=== PATIENT | female | born 1965 | race Caucasian/White ===

== ENCOUNTER 2016-07-05 09:09 | Emergency (ER) | payer OTHER ==
[2016-07-05] MEDS ORDERED: SODIUM CHLORIDE 0.9% 1,000 ML IV STA (09:30)
--- NOTE | 2016-07-05 09:51 | ED ---
General Adult HPI - General Chief complaint: Dizziness Stated complaint: dizziness, fall Time Seen by Provider: 07/05/16 09:18 Source: patient, RN notes reviewed Mode of arrival: ambulatory Limitations: no limitations - History of Present Illness Initial comments: 50-year-old female presents to the emergency department for an evaluation. Patient states this morning she rolled over to off her alarm and she felt as if the world was spinning. Patient states she laid in bed this dizziness resolved. Patient states she got up and walked to the bathroom and she has not had spinning since the morning. Patient states when she went to sit down to go to the bathroom she felt as if she just fell without control patient states that she fell onto her left knee. Patient states she did not hit her head. Patient states her leg did not give out she did not feel dizzy at this time she just fell and she does not know how. Patient states that over the last year her left leg has been getting weaker. Patient does admit to a history of back surgery in the past but states she hasn't had any increased pain that leg she states she just noticed some weakness. Patient states she's also been told that she has a herniated disc in the neck about a year ago and has not had a procedure on either. Patient's positive dizziness may be related to this. Patient states that she has no headache she has not experienced this dizziness that she feels as if she is back to normal. Patient states that she was concerned due to the fact she is having symptoms so she thought that she should be evaluated patient denies any other significant health history. Patient denies any recent fever, chills, shortness of breath, chest pain, back pain, abdominal pain, nausea vomiting, numbness or tingling, dysuria or hematuria, constipation or diarrhea, headaches or visual changes, or any other current symptoms. - Related Data Home Medications Medication Instructions Recorded Confirmed Butalb/APAP/Caff 50-325-40Mg 1 tab PO Q4H PRN 07/05/16 07/05/16 [Fioricet 50-325-40] Cyclobenzaprine [Flexeril] 10 mg PO TID PRN 07/05/16 07/05/16 Ibuprofen [Motrin] 800 mg PO Q8H PRN 07/05/16 07/05/16 Previous Rx's Medication Instructions Recorded Meclizine [Antivert] 12.5 mg PO Q6H #20 tablet 07/05/16 Allergies Allergy/AdvReac Type Severity Reaction Status Date / Time codeine Allergy Anaphylaxis Verified 07/05/16 09:25 Review of Systems ROS Statement: Those systems with pertinent positive or pertinent negative responses have been documented in the HPI. ROS Other: All systems not noted in ROS Statement are negative. Past Medical History Additional Past Medical History / Comment(s): herniated disc, djd, headaches History of Any Multi-Drug Resistant Organisms: None Reported Past Surgical History: Appendectomy, Back Surgery, Section Additional Past Surgical History / Comment(s): uterine ablation Past Psychological History: No Psychological Hx Reported Smoking Status: Never smoker Past Alcohol Use History: None Reported Past Drug Use History: None Reported General Exam - General Exam Comments Initial Comments: General: The patient is awake and alert, in no distress, and does not appear acutely ill. Eye: Pupils are equal, round and reactive to light, extra-ocular movements are intact; there is normal conjunctiva bilaterally. No signs of icterus. Ears, nose, mouth and throat: There are moist mucous membranes and no oral lesions. Neck: The neck is supple, there is no tenderness. Cardiovascular: There is a regular rate and rhythm. No murmur, rub or gallop is appreciated. Respiratory: Lungs are clear to auscultation, respirations are non-labored, breath sounds are equal. No wheezes, stridor, rales, or rhonchi. Gastrointestinal: Soft, non-distended, non-tender abdomen without masses or organomegaly noted. There is no rebound or guarding present. No CVA tenderness. Bowel sounds are unremarkable. Back: There is no tenderness to palpation in the midline. There is no obvious deformity. No rashes noted. Musculoskeletal: Patient to left knee Normal ROM, no tenderness, There is no pedal edema. There is no calf tenderness or swelling. Sensation intact. Pulses equal bilaterally 2+. Neurological: CN II-XII intact, There are no obvious motor or sensory deficits. Coordination appears grossly intact. Speech is normal. 5 out of 5 muscle strength testing is no pronator drift, no ataxia Skin: Skin is warm and dry and no rashes or lesions are noted. Psychiatric: Cooperative, appropriate mood & affect, normal judgment. Limitations: no limitations Course Vital Signs 07/05/16 09:12 Temperature 99.4 F Pulse Rate 102 H Respiratory 20 Rate Blood Pressure 128/84 O2 Sat by Pulse 97 Oximetry EKG Findings - EKG Comments: EKG Findings:: normal sinus rhythm 83 bpm, normal axis, no atopy, no S-T depressions or elevations, Medical Decision Making - Medical Decision Making 50-year-old female presents with what appears to be vertigo and associated fall. At this time CAT scan and laboratory is reviewed and does not show any acute process. Patient does have the symptoms of vertigo and then symptoms of off balance. Patient has no ataxia on exam patient is able to ambulate around the emergency department. We discussed continued follow-up with her PCP. We will start patient Antivert. We discussed return parameters. Patient stated that she understood she hasn't been complaining all questions have been answered. She will be discharged. - Lab Data Result diagrams: 07/05/16 09:35 07/05/16 09:35 Lab Results 07/05/16 07/05/16 07/05/16 Range/Units 09:35 09:35 09:35 WBC 5.4 (3.8-10.6) k/uL RBC 4.54 (3.80-5.40) m/uL Hgb 14.1 (11.4-16.0) gm/dL Hct 42.5 (34.0-46.0) % MCV 93.7 (80.0-100.0) fL MCH 31.0 (25.0-35.0) pg MCHC 33.1 (31.0-37.0) g/dL RDW 12.6 (11.5-15.5) % Plt Count 215 (150-450) k/uL Neutrophils % 61 % Lymphocytes % 29 % Monocytes % 5 % Eosinophils % 2 % Basophils % 1 % Neutrophils # 3.2 (1.3-7.7) k/uL Lymphocytes # 1.6 (1.0-4.8) k/uL Monocytes # 0.3 (0-1.0) k/uL Eosinophils # 0.1 (0-0.7) k/uL Basophils # 0.0 (0-0.2) k/uL Sodium 140 (137-145) mmol/L Potassium 4.4 (3.5-5.1) mmol/L Chloride 105 (98-107) mmol/L Carbon Dioxide 23 (22-30) mmol/L Anion Gap 12 mmol/L BUN 12 (7-17) mg/dL Creatinine 0.79 (0.52-1.04) mg/dL Est GFR (MDRD) Af Amer >60 (>60 ml/min/1.73 sqM) Est GFR (MDRD) Non-Af >60 (>60 ml/min/1.73 sqM) Glucose 100 H (74-99) mg/dL Calcium 9.1 (8.4-10.2) mg/dL Total Bilirubin 0.6 (0.2-1.3) mg/dL AST 17 (14-36) U/L ALT 25 (9-52) U/L Alkaline Phosphatase 82 (38-126) U/L Total Protein 7.6 (6.3-8.2) g/dL Albumin 4.1 (3.5-5.0) g/dL Urine Color Urine Appearance (Clear) Urine pH (5.0-8.0) Ur Specific [place] (1.001-1.035) Urine Protein (Negative) Urine Glucose (UA) (Negative) Urine Ketones (Negative) Urine Blood (Negative) Urine Nitrate (Negative) Urine Bilirubin (Negative) Urine Urobilinogen (<2.0) mg/dL Ur Leukocyte Esterase (Negative) Influenza Type A RNA Not Detected (Not Detectd) Influenza Type B (PCR) Not Detected (Not Detectd) 07/05/16 Range/Units 09:35 WBC (3.8-10.6) k/uL RBC (3.80-5.40) m/uL Hgb (11.4-16.0) gm/dL Hct (34.0-46.0) % MCV (80.0-100.0) fL MCH (25.0-35.0) pg MCHC (31.0-37.0) g/dL RDW (11.5-15.5) % Plt Count (150-450) k/uL Neutrophils % % Lymphocytes % % Monocytes % % Eosinophils % % Basophils % % Neutrophils # (1.3-7.7) k/uL Lymphocytes # (1.0-4.8) k/uL Monocytes # (0-1.0) k/uL Eosinophils # (0-0.7) k/uL Basophils # (0-0.2) k/uL Sodium (137-145) mmol/L Potassium (3.5-5.1) mmol/L Chloride (98-107) mmol/L Carbon Dioxide (22-30) mmol/L Anion Gap mmol/L BUN (7-17) mg/dL Creatinine (0.52-1.04) mg/dL Est GFR (MDRD) Af Amer (>60 ml/min/1.73 sqM) Est GFR (MDRD) Non-Af (>60 ml/min/1.73 sqM) Glucose (74-99) mg/dL Calcium (8.4-10.2) mg/dL Total Bilirubin (0.2-1.3) mg/dL AST (14-36) U/L ALT (9-52) U/L Alkaline Phosphatase (38-126) U/L Total Protein (6.3-8.2) g/dL Albumin (3.5-5.0) g/dL Urine Color Yellow Urine Appearance Clear (Clear) Urine pH 6.0 (5.0-8.0) Ur Specific [place] 1.010 (1.001-1.035) Urine Protein Negative (Negative) Urine Glucose (UA) Negative (Negative) Urine Ketones Negative (Negative) Urine Blood Negative (Negative) Urine Nitrate Negative (Negative) Urine Bilirubin Negative (Negative) Urine Urobilinogen <2.0 (<2.0) mg/dL Ur Leukocyte Esterase Negative (Negative) Influenza Type A RNA (Not Detectd) Influenza Type B (PCR) (Not Detectd) - Radiology Data Radiology results: report reviewed, image reviewed Disposition Clinical Impression: Vertigo, Fall, Abrasion, left knee, initial encounter Disposition: HOME SELF-CARE Condition: Stable Instructions: Vertigo (ED) Additional Instructions: Please use medication as discussed. Please follow up with family doctor if symptoms have not improved over the next two days. Please return to the emergency room if your symptoms increase or worsen or for any other concerns. Prescriptions: Meclizine [Antivert] 12.5 mg PO Q6H #20 tablet Referrals: Arlet Hardy DO [Primary Care Provider] - 1-2 days
[2016-07-05 09:56] LABS: Basophils % (A) 1 %; CH 31.2; CHCM 33.5; Eosinophils # (A) 0.1 k/uL (0-0.7); Eosinophils % (A) 2 %; HCT 42.5 % (34.0-46.0); HDW 2.14; HGB 14.1 gm/dL (11.4-16.0); Luc # (Auto) 0.11; Luc % (Auto) 2; Lymphocytes # (A) 1.6 k/uL (1.0-4.8); Lymphocytes % (A) 29 %; MCHC 33.1 g/dL (31.0-37.0); MCV 93.7 fL (80.0-100.0); Mean Platelet Volume 7.5; Monocytes # (A) 0.3 k/uL (0-1.0); Monocytes % (A) 5 %; Neutrophils # (A) 3.2 k/uL (1.3-7.7); Neutrophils % (A) 61 %; RBC 4.54 m/uL (3.80-5.40); RDW 12.6 % (11.5-15.5); WBC 5.4 k/uL (3.8-10.6); WBC (Perox) 5.66
[2016-07-05 10:00] LABS: Appearance,Urine Clear (Clear); Bilirubin,Urine Negative (Negative); Glucose,Urine (UA) Negative (Negative); Ketones,Urine Negative (Negative); Leukocyte Esterase,Urine Negative (Negative); Nitrite,Urine Negative (Negative); Protein,Urine Negative (Negative); UA Billing (MACRO vs. MICRO) CHEM; Urobilinogen,Urine <2.0 mg/dL (<2.0)
[2016-07-05 10:10] LABS: ALT 25 U/L (9-52); AST 17 U/L (14-36); Alkaline Phosphatase 82 U/L (38-126); Anion Gap 12 mmol/L; Blood Urea Nitrogen 12 mg/dL (7-17); Calcium 9.1 mg/dL (8.4-10.2); Carbon Dioxide 23 mmol/L (22-30); Chloride 105 mmol/L (98-107); Glucose 100 mg/dL (74-99); Non-African American GFR(MDRD) >60 (>60 ml/min/1.73 sqM); Potassium 4.4 mmol/L (3.5-5.1); Sodium 140 mmol/L (137-145); Total Bilirubin 0.6 mg/dL (0.2-1.3); Total Protein 7.6 g/dL (6.3-8.2)
--- NOTE | 2016-07-05 10:26 | CT ---
EXAMINATION TYPE: CT brain c-spine wo con DATE OF EXAM: 07/05/2016 10:14 AM COMPARISON: NONE HISTORY: Dizziness and Fall CT DLP: 1291.50 mGycm Automated exposure control for dose reduction was used. TECHNIQUE: CT scan of the brain and cervical spine are performed without contrast. FINDINGS: Brain: Central structures are midline. There is no evidence of hydrocephalus. No acute focal lesion, mass effect or midline shift is seen. I do not see evidence of intracranial blood. Visualized portions of the paranasal sinuses and mastoids are clear. No depressed skull fracture is s een. Cervical spine: There are emphysematous changes throughout the visualized portions of the lungs. There is some shotty cervical adenopathy. Prevertebral soft tissues are otherwise normal. Vertebral body height is maintained. There is a mild reversal of the normal cervical lordosis. Atlant oaxial relationships are normal. There is a minimal retrolisthesis of C5 on C6. There is degenerative disc disease at this level as well as uncovertebral joint disease. No fractures are seen. No discal protrusion is seen. IMPRESSION: 1. Normal CT scan of the brain. 2. No acute cervical fracture. 3. Degenerative change. 4. Emphysematous change.
[2016-07-05 10:59] VITALS: BP 120/80; PULSE 77; RESP 16; TEMP 97.3
== END 2016-07-05 10:58 | disposition home or self-care (01) ==
LOC: EC 09:09
DX: R42 Dizziness and giddiness (principal); S80.212A Abrasion, left knee, initial encounter; W19.XXXA Unspecified fall, initial encounter; Y92.002 Bathroom of unspecified non-institutional (private) residence as the place of occurrence of the external cause; Z88.5 Allergy status to narcotic agent
CPT/HCPCS: 36415; 70450; 72125; 80053; 81003; 85025; 87502; 93005; 96360; 99284

== ENCOUNTER → 2017-09-24 | Outpatient (CLI) | payer OTHER ==
--- NOTE | 2017-09-24 20:58 | MR ---
EXAMINATION TYPE: MR cervical spine wo con DATE OF EXAM: 09/24/2017 COMPARISON: Prior MR cervical spine 09/02/2015 HISTORY: Neck pain, Arm Pain, Headaches TECHNIQUE: Multiplanar, multisequence images of the cervical spine were acquired. C2-C3: No evidence for degenerative disc disease. No disc bulge/herniation or protrusion. No Canal stenosis. Foramina are patent bilaterally. C3-C4: No evidence for degenerative disc disease. No disc bulge/herniation or protrusion. No Canal stenosis. Foramina are patent bilaterally. C4-C5: No evidence for degenerative disc disease. No disc bulge/herniation or protrusion. No Canal stenosis. Foramina are patent bilaterally. C5-C6: There is loss of disc height. Associated spondylosis is present. Lateral extension of endplate disc complex causes bilateral foraminal encroachment, posterior circumferential disc bulge causes on ly mild anterior mass effect on the thecal sac. C6-C7: No evidence for degenerative disc disease. No disc bulge/herniation or protrusion. No Canal stenosis. Foramina are patent bilaterally. C7-T1: No evidence for degenerative disc disease. No disc bulge/herniation or protrusion. No Canal stenosis. Foramina are patent bilaterally. Cervical segments are intact. There is stable alignment. Cervical spinal cord is of normal signal. Craniovertebral junction relationships are within normal limits. IMPRESSION: Stable mild degenerative disc disease.
== END | disposition home or self-care (01) ==
LOC: RADMRIMAIN 18:24
PROVIDERS: ATTEND Neurological Surgery
DX: M50.30 Other cervical disc degeneration, unspecified cervical region (principal)
CPT/HCPCS: 72141

== ENCOUNTER → 2017-10-31 | Outpatient (CLI) | payer OTHER ==
[2017-10-31 17:54] LABS: Partial Thromboplastin Time 24.2 sec (22.0-30.0); Prothrombin Time 9.9 sec (9.0-12.0)
[2017-10-31 18:02] LABS: Basophils % (A) 0 %; Eosinophils # (A) 0.1 k/uL (0-0.7); Eosinophils % (A) 1 %; HCT 39.1 % (34.0-46.0); HGB 13.1 gm/dL (11.4-16.0); Lymphocytes # (A) 2.3 k/uL (1.0-4.8); Lymphocytes % (A) 38 %; MCH 30.3 pg (25.0-35.0); MCHC 33.6 g/dL (31.0-37.0); MCV 90.4 fL (80.0-100.0); Mean Platelet Volume 6.8; Monocytes # (A) 0.4 k/uL (0-1.0); Monocytes % (A) 6 %; Neutrophils # (A) 3.3 k/uL (1.3-7.7); Neutrophils % (A) 53 %; Platelet Count 243 k/uL (150-450); RBC 4.33 m/uL (3.80-5.40); RDW 13.4 % (11.5-15.5); WBC 6.2 k/uL (3.8-10.6)
[2017-10-31 18:04] LABS: ALT 33 U/L (9-52); AST 17 U/L (14-36); Albumin 4.1 g/dL (3.5-5.0); Alkaline Phosphatase 74 U/L (38-126); Anion Gap 10 mmol/L; Blood Urea Nitrogen 9 mg/dL (7-17); Calcium 8.8 mg/dL (8.4-10.2); Carbon Dioxide 25 mmol/L (22-30); Chloride 103 mmol/L (98-107); Glucose 87 mg/dL (74-99); Potassium 4.3 mmol/L (3.5-5.1); Sodium 138 mmol/L (137-145); Total Bilirubin 0.2 mg/dL (0.2-1.3)
[2017-10-31 18:40] LABS: Appearance,Urine Clear (Clear); Bilirubin,Urine Negative (Negative); Blood,Urine Negative (Negative); Color,Urine Yellow; Glucose,Urine (UA) Negative (Negative); Ketones,Urine Negative (Negative); Leukocyte Esterase,Urine Negative (Negative); Nitrite,Urine Negative (Negative); Protein,Urine Trace (Negative); Specific Gravity,Urine 1.025 (1.001-1.035)
[2017-11-01 00:56] LABS: Progesterone 0.4 ng/mL
== END | disposition home or self-care (01) ==
LOC: LABWHC1 16:55
PROVIDERS: ATTEND Neurological Surgery
DX: L90.0 Lichen sclerosus et atrophicus (principal); M50.122 Cervical disc disorder at C5-C6 level with radiculopathy
CPT/HCPCS: 36415; 80053; 81003; 82670; 83001; 83002; 84144; 85025; 85610; 85730; 87070; 87086

== ENCOUNTER → 2017-11-15 | Outpatient (CLI) | payer OTHER ==
--- NOTE | 2017-11-15 17:03 | XR ---
EXAMINATION TYPE: XR chest 2V DATE OF EXAM: 11/15/2017 COMPARISON: 11/29/2011 HISTORY: Preop TECHNIQUE: Frontal and lateral views of the chest are obtained. FINDINGS: Heart and mediastinum are normal. Lungs are clear. Diaphragm is normal. Bony thorax appear s normal. IMPRESSION: Normal chest. No change.
== END | disposition home or self-care (01) ==
LOC: RADXRYALE 16:19
PROVIDERS: ATTEND Nurse Practitioner Family
DX: Z01.818 Encounter for other preprocedural examination (principal)
CPT/HCPCS: 71046

== ENCOUNTER → 2018-01-11 | Outpatient (CLI) | payer OTHER ==
--- NOTE | 2018-01-11 11:53 | XR ---
EXAMINATION TYPE: XR cervical spine comp DATE OF EXAM: 01/11/2018 COMPARISON: 02/12/2012 HISTORY: Pain TECHNIQUE: Frontal and lateral neutral, lateral flexion, and lateral extension views are submitted. FINDINGS: The odontoid is intact. There are no compression deformities. The prevertebral soft tissue structur es are within normal limits. Postsurgical changes C5-C6. Mild degenerative disc disease C4-C5 and C6 -C7. On flexion views there is a 2 to 3 mm anterior listhesis of C5 and C6. IMPRESSION: 1. Postoperative change. See above.
== END | disposition home or self-care (01) ==
LOC: RADXRYALE 10:32
PROVIDERS: ATTEND Neurological Surgery
DX: M50.122 Cervical disc disorder at C5-C6 level with radiculopathy (principal); Z98.890 Other specified postprocedural states
CPT/HCPCS: 72050

== ENCOUNTER → 2018-08-07 | Outpatient (CLI) | payer OTHER ==
[~2018-08-07] MED LIST: REGADENOSON 0.4 MG/5 ML SYRINGE IV ONE
--- NOTE | 2018-08-07 12:02 | NM ---
EXAMINATION TYPE: NM stress lexiscan cardiolite DATE OF EXAM: 08/07/2018 COMPARISON: NONE HISTORY: TECHNIQUE: After the intravenous administration of 10.2 mCi Tc 99m Sestamibi - Cardiolite resting SP ECT images acquired 45 minutes post injection. The patient received 0.4mg Lexiscan, 26.2 mCi Tc 99m Sestamibi - Stress images obtained [address] injection FINDINGS: Review of stress and rest SPECT images demonstrates no distinct perfusion abnormality. Gated analysi s shows normal wall motion with an estimated left ventricular ejection fraction of 65 %. IMPRESSION: No scintigraphic evidence for reversible ischemia.
--- NOTE | 2018-08-07 14:30 | EST ---
EXERCISE STRESS AGE: 52 SEX: F HT: 5'6' WT: 189 PROTOCOL: Lexiscan Cardiolite Stress Test HEART RATE REST: 77 BLOOD PRESSURE REST: 142/87 MAXIMUM HEART RATE ACHIEVED: 108 MAXIMUM BLOOD PRESSURE: 137/85 INDICATIONS: Chest pain. CLINICAL INFORMATION: A Lexiscan nuclear study was performed. Peak heart rate of 108 was achieved. Maximum blood pressure of 137/85 mmHg was noted. The resting EKG shows normal sinus rhythm with normal PA interval and QRS duration and normal ST-T waves. No ST-segment depression suggestive of ischemia is noted. FINAL IMPRESSION: 1. There is no evidence of any ST-segment depression to suggest ischemia during Lexiscan injection. 2. The results of the nuclear study will follow. MMRANDYL / IJN: [id number] /
== END ==
LOC: RADNMMAIN 07:40
PROVIDERS: ATTEND Family Medicine
DX: R07.9 Chest pain, unspecified (principal)
CPT/HCPCS: 93017; 78452; A9500; J2785

== ENCOUNTER 2019-06-04 07:05 | Day surgery (SDC) | payer OTHER ==
[2019-06-03 10:59] VITALS: BMI 27.4
[~2019-06-04 07:05] MED LIST changes: +LACTATED RINGERS 1,000 ML IV SCH; +LIDOCAINE 1% (10MG/ML) FOR IV START INTRADERMA PRN; -REGADENOSON 0.4 MG/5 ML SYRINGE IV ONE
[2019-06-04 07:37] VITALS: RESP 16; TEMP 98.2
[2019-06-04] MEDS ORDERED: PROPOFOL 10 MG/ML 20 ML VIAL IV ONE (08:00)
[2019-06-04] MEDS ORDERED: ONDANSETRON 4 MG/2 ML VIAL ONE (08:00)
[2019-06-04] MEDS ORDERED: KETOROLAC 30 MG/ML 1 ML VIAL ONE (08:00)
--- NOTE | 2019-06-04 08:16 | P.PCN ---
Date of Procedure: 06/04/19 Procedure(s) Performed: Brief history: Patient is a pleasant 53-year-old white female, scheduled for an elective upper endoscopy as well as colonoscopy as a part of evaluation of GERD and screening for colon cancer. Procedure performed: Esophagogastroduodenoscopy with biopsy Attempted Colonoscopy Preoperative diagnosis: GERD refractory to medical therapy Screening for colon cancer Anesthesia: MAC Procedure: After informed consent was obtained from the patient was brought into the endoscopy unit and IV sedation was administered by anesthesia under continuous monitoring. Initially upper endoscopy was done. The Olympus GF 160 video endoscope was inserted inserted into the mouth and esophagus intubated without any difficulty and was gradually advanced into the stomach and duodenum and carefully examined. The bulb and second part of the duodenum appeared normal. The scope was then withdrawn into the stomach adequately insufflated with air and upon careful examination the antrum had mild gastritis and biopsies were done from this area. The body, cardia and fundus appeared normal. The scope was then withdrawn into the esophagus. The GE junction was located at 40 cm to the incisors. It appeared regular with no erythema erosions or ulcerations. However there was a short tongue of Vides's appearing mucosa just proximal to the GE junction measuring 2-3 mm in length which was biopsied. Rest of the esophagus appeared normal. Patient tolerated the procedure well. At this time the patient continued to remain sedation. Initial digital rectal exrevealed solid stool. Olympus CF 160 video colonoscope was then inserted into the rectum and there was significant amount of solid stool noted in the rectum and hence the procedure was terminated. Patient tolerated the procedure well. Impression: 1. 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 Colonoscopy aborted because of extremely poor prep. Recommendations: Findings of this examination were discussed with the patient as well as family. She was advised to follow with the biopsy results. she'll be scheduled for colonoscopy later date. In the meantime she will continue with Prilosec 20 mg twice daily and Pepcid at bedtime. She was educated about diet modification and advised to follow antireflux measures
[2019-06-04] MEDS ORDERED: IV FLUID CONTINUATION 650 ML IV ONE (08:17)
[2019-06-04 08:38] VITALS: BP 129/84; PULSE 72
== END 2019-06-04 08:53 | disposition home or self-care (01) ==
LOC: ORWHC2ENDO 07:05
PROVIDERS: ATTEND Internal Medicine Gastroenterology
DX: K29.50 Unspecified chronic gastritis without bleeding (principal); K22.70 Barrett's esophagus without dysplasia; K21.9 Gastro-esophageal reflux disease without esophagitis; Z12.11 Encounter for screening for malignant neoplasm of colon; I10 Essential (primary) hypertension; Z79.899 Other long term (current) drug therapy; Z88.5 Allergy status to narcotic agent; Z88.1 Allergy status to other antibiotic agents; Z98.1 Arthrodesis status; Z98.890 Other specified postprocedural states; Z90.49 Acquired absence of other specified parts of digestive tract
CPT/HCPCS: 88305; 43239; 45330; J2405; J1885; J2704

== ENCOUNTER → 2020-03-19 | Outpatient (CLI) | payer OTHER ==
--- NOTE | 2020-03-19 15:14 | XR ---
Left shoulder HISTORY: Pain 3 views of left shoulder Bone mineralization, joint spaces and alignment are maintained. No fracture or dislocation. Left lung apex as visualized is normal. IMPRESSION: Normal left shoulder.
== END | disposition home or self-care (01) ==
LOC: RADXRYALE 14:31
PROVIDERS: ATTEND Physician Assistant Medical
DX: M75.02 Adhesive capsulitis of left shoulder (principal)

== ENCOUNTER → 2021-10-13 | Outpatient (CLI) | payer OTHER ==
--- NOTE | 2021-10-13 15:00 | XR ---
EXAMINATION TYPE: XR cervical spine comp DATE OF EXAM: 10/13/2021 COMPARISON: 01/11/2018 HISTORY: INCREASING CERVICALGIA TECHNIQUE: four views FINDINGS: Postsurgical change C5-C6 with moderate degenerative disc disease C6-C7. There is a grade 1 anterolisthesis of C3 on 4. Soft tissue calcification left likely vascular. Foraminal encroachment C 5-C6 bilaterally. IMPRESSION: 1. Postsurgical change C5-C6 and near-anatomic alignment. 2. Multilevel mild facet arthropathy with moderate degenerative disc disease C6-C7. 3. Grade 1 anterolisthesis C3 on C appears stable.
== END | disposition home or self-care (01) ==
LOC: RADXRYALE 10:27
PROVIDERS: ATTEND Physician Assistant Medical
DX: M47.812 Spondylosis without myelopathy or radiculopathy, cervical region (principal); M50.323 Other cervical disc degeneration at C6-C7 level; M43.12 Spondylolisthesis, cervical region
CPT/HCPCS: 72050

== ENCOUNTER → 2022-09-25 | Outpatient (CLI) | payer OTHER ==
--- NOTE | 2022-09-25 10:38 | XR ---
EXAM TYPE: LUMBAR SPINE X RAY SERIES COMPARISON: NONE HISTORY: Pain TECHNIQUE: 4 views are submitted. FINDINGS: Alignment is anatomic. The pedicles are intact. The transverse processes are intact. There is post surgical change at L5-S1 with foraminal encroachment. Mild multilevel additional degenerative disc di sease. SI joints symmetric. IMPRESSION: 1. Postsurgical changes L5-S1 with foraminal protrusion suspected. 2. Multilevel mild degenerative disc
--- NOTE | 2022-09-26 08:42 | XR ---
EXAMINATION TYPE: XR KUB DATE OF EXAM: 09/25/2022 COMPARISON: NONE HISTORY: Left flank pain TECHNIQUE: One view abdominal series FINDINGS: The osseous structures are intact. The bowel gas pattern is nonspecific. Postoperative change lower lumbar spine. Calcifications in the pelvis likely is vascular. IMPRESSION: 1. Nonspecific abdomen. Calcification in pelvis likely is vascular.
== END | disposition home or self-care (01) ==
LOC: RADXRYALE 09:44
PROVIDERS: ATTEND Physician Assistant Medical
DX: M51.36 Other intervertebral disc degeneration, lumbar region (principal); M99.73 Connective tissue and disc stenosis of intervertebral foramina of lumbar region; R31.9 Hematuria, unspecified
CPT/HCPCS: 72110; 74018

== ENCOUNTER → 2022-12-26 | Outpatient (CLI) | payer OTHER ==
--- NOTE | 2022-12-26 10:02 | XR ---
EXAMINATION TYPE: XR Hip Bilateral Complete DATE OF EXAM: 12/26/2022 COMPARISON: NONE HISTORY: Pain TECHNIQUE: 2 views bilateral hip submitted FINDINGS: There is no evidence of erosive change or acute fracture. Postsurgical changes involving the lower ve rtebral canal. Mild diffuse osteopenia. Mild hypertrophic changes as. Calcification in the pelvis syeda ears related to a vascular phlebolith. Tiny spurs along the lower margin of the greater trochanter bi laterally. IMPRESSION: 1. Mild arthropathy.
== END | disposition home or self-care (01) ==
LOC: RADXRYALE 09:11
PROVIDERS: ATTEND Family Medicine
DX: M16.0 Bilateral primary osteoarthritis of hip (principal)
CPT/HCPCS: 73521

== ENCOUNTER → 2023-03-16 | Outpatient (CLI) | payer OTHER ==
--- NOTE | 2023-03-16 11:56 | XR ---
EXAM TYPE: LUMBAR SPINE X RAY SERIES COMPARISON: 09/25/2022 HISTORY: Pain TECHNIQUE: 4 views are submitted. FINDINGS: Alignment is anatomic. The pedicles are intact. The transverse processes are intact. There is postsur gical change at L5-S1 with foraminal encroachment. Mild multilevel additional degenerative disc disea se. SI joints symmetric. Multilevel degenerative change of the thoracolumbar spine with diffuse osteo penia. IMPRESSION: 1. Postsurgical changes L5-S1 with foraminal protrusion suspected. 2. Multilevel mild degenerative disc
--- NOTE | 2023-03-16 11:57 | XR ---
EXAMINATION TYPE: XR cervical spine comp DATE OF EXAM: 03/16/2023 COMPARISON: 10/13/2021 HISTORY: Pain TECHNIQUE: Four views are submitted. FINDINGS: The odontoid is intact. There are no compression deformities. The prevertebral soft tissue structur es are within normal limits. Postsurgical changes C5-C6. Grade 1 anterolisthesis C3-4, C4-5. Multile madelyn facet arthropathy. Calcification and soft tissue the neck is likely related to the carotid artery . Degenerative changes C6-C7. Multilevel facet arthropathy. IMPRESSION: 1. Postsurgical change C5-C6.. 2. Moderate degenerative disc disease C6-C7.
== END | disposition home or self-care (01) ==
LOC: RADXRYALE 10:33
PROVIDERS: ATTEND Family Medicine
DX: M50.322 Other cervical disc degeneration at C5-C6 level (principal); M51.36 Other intervertebral disc degeneration, lumbar region; Z98.890 Other specified postprocedural states
CPT/HCPCS: 72050; 72110

== ENCOUNTER → 2023-07-18 | Outpatient (CLI) | payer OTHER ==
--- NOTE | 2023-07-18 12:22 | US ---
EXAMINATION TYPE: US renals and bladder DATE OF EXAM: 07/18/2023 COMPARISON: None CLINICAL INDICATION: Female, 57 years old with history of N18.31 CHRONIC KIDNEY DISEASE, STAGE 3A; Ab normal labs. No pain. Patient states she has history of renal stones. EXAM MEASUREMENTS: Right Kidney: 10.9 x 5.2 x 6.2 cm Left Kidney: 10.0 x 4.1 x 5.2 cm Right Kidney: Medial anechoic lesion at hilum = 1.4 x 1.7 cm Left Kidney: Echogenic focus seen mid medial = 0.5 cm. Possible dilated renal collecting system in r enal sinus Bladder: distended, anechoic Bilateral Jets seen There is no evidence for hydronephrosis at this point in time. No solid masses are identified. Th e urinary bladder is anechoic. Bilateral ureteral jets are seen. IMPRESSION: 1. Nonobstructing left renal calculus. 2. Cyst right kidney.
== END | disposition home or self-care (01) ==
LOC: RADUSWWP 11:22
PROVIDERS: ATTEND Family Medicine
DX: N20.0 Calculus of kidney (principal); N28.1 Cyst of kidney, acquired
CPT/HCPCS: 76770